=== PATIENT | female | born 1975 | race Caucasian/White ===

== ENCOUNTER 2016-10-31 15:16 | Emergency (ER) | payer OTHER ==
[~2016-10-31] VITALS: Wt 65.0 kg
[2016-10-31] MEDS ORDERED: SOD CHLORIDE 0.9% 1,000 ML IV STA (15:45)
[2016-10-31] MEDS ORDERED: morphine 2 MG INJ IV STA (15:45)
--- NOTE | 2016-10-31 17:08 | PDOCDIS ---
Discharge Instructions DIAGNOSIS Discharge Diagnosis UTI with possible pyelonephritis. CONDITION Patient Condition: Stable HOME CARE INSTRUCTIONS: Diet Instructions: Regular OTHER ORDERS: Other Orders: 1. Complete the course of antibiotics. 2. Take a regular diet. Adequately hydrate yourself. 3. Follow-up with your director of primary in 1 week. 4. Please go to the nearest ER if you continue to have significant flank and abdominal pain, continuous fevers, persistent nausea and vomiting, or any other unusual signs/symptoms. KY LAZARO NP Oct 31, 2016 17:08
[2016-10-31] MEDS ORDERED: SULF1TAB31 PO (17:09)
--- NOTE | 2016-10-31 17:14 | HP ---
Date/Time of Note Date/Time of Note DATE: 10/31/16 TIME: 17:09 Assessment/Plan VTE Prophylaxis VTE Prophylaxis Intervention: ambulation Assessment/Plan Chief Complaint/Hosp Course 1. Uncomplicated urinary tract infection with possible left-sided pyelonephritis. The patient will be continued on oral antibiotics. However, the patient's oral antibiotics will be switched to Bactrim DS. 2. Leukocytosis. Most probably secondary to #1. Plan. The patient will be discharged home today on oral antibiotics. For unclear reasons, the patient was started on oral Keflex by her poultry hatchery man as outpatient. This will be discontinued and the patient will be discharged home on oral Bactrim for 7 days. Case discussed with Dr. Nance. Problems: HPI/ROS Admit Date/Time Admit Date/Time Hx of Present Illness Reason for admission: Transferred from [facility] for further management of urinary tract infection. This is a 41-year-old female who denies any significant past medical history who started having dysuria with fevers starting on 10/29/2016. Patient went to see her primary care physician and she was started on oral Keflex and oral fluconazole. The patient started taking this medicine only from 10/30/2016. The patient did not feel well. The patient was also having fevers and chills. She also had dysuria. The patient had urinary frequency too. Therefore, she went to the closest emergency room. In the emergency room at [facility], the patient was noticed to have leukocytosis. The patient also had febrile episodes. The patient had no lactic acidosis. The patient's vital signs except the temperature remained stable. The patient was treated with a single dose of IV Zosyn along with IV fluids. Patient was transferred to [facility] for further management because of insurance reasons. In the emergency room at [facility] the patient remained afebrile. Patient's vital signs were stable. The patient was given 1 L of IV sodium chloride. ROS Constitutional: chills, nausea Eyes: no complaints ENT: no complaints Respiratory: no complaints Cardiovascular: no complaints Gastrointestinal: nausea, pain Genitourinary: dysuria, flank pain Musculoskeletal: no complaints Skin: no complaints Neurologic: no complaints Endocrine: no complaints Lymphatic: no complaints Psychological: no complaints Immunologic: no complaints PMH/Family/Social Past Medical History Medical History: no pertinent history Past Surgical History Past Surgical Hx: appendectomy Social History Lives with family. Alcohol Use: occasionally Smoking Status: Never smoker Drug Use: none Exam/Review of Systems Vital Signs Vitals Vital Signs Date Time Temp Pulse Resp B/P Pulse Ox O2 Delivery O2 Flow Rate FiO2 10/31/16 15:35 98.0 80 20 104/60 98 Exam Exam General: Adequately build 41 year-old male lying in bed in no apparent distress. HEENT: Normocephalic, atraumatic. Eyes: Anicteric sclerae, conjunctivae clear. ENT: Nasal septum midline, oral mucosa moist. Neck supple, no JVD noticed. Respiratory: Bilaterally clear breath sounds. No use of accessory muscles of respiration. No adventitious breath sounds. Cardiovascular: S1, S2 heard. No murmurs or gallops. Abdomen: Soft, nontender, and nondistended. Bowel sounds positive in all 4 quadrants. Genitourinary: Left CVA tenderness. Extremities: No cyanosis, no clubbing, no edema. Peripheral pulses palpable. Neurologic: Cranial nerves II through XII grossly intact. The patient is awake, alert, and oriented. Skin: Normal skin turgor. No skin rashes. KY LAZARO NP Oct 31, 2016 17:14
--- NOTE | 2016-10-31 17:16 | ERA ---
ER Documentation Chief Complaint Date/Time DATE: 10/31/16 TIME: 17:14 Chief Complaint FLANK PAIN SENT FROM [place] FOR ADMISSION, ALREADY GIVEN ABX HPI 41-year-old woman holding in the emergency department pending transport upstairs after being admitted for pyelonephritis. She was admitted from [facility]. While there she was treated with IV antibiotics and IV fluids as well as Toradol for pain. Patient's initial symptoms were left-sided flank pain. ROS All systems reviewed and are negative except as per history of present illness. Medications Home Meds Active Scripts Sulfamethoxazole/Trimethoprim* (Bactrim Ds* Tablet) 1 Each Tablet, 1 TAB PO BID , #14 TAB Prov:KY LAZARO FACULTY HEAD 10/31/16 Allergies Allergies: Coded Allergies: No Known Drug Allergy (Verified Allergy, Unknown, 10/31/16) PMhx/Soc None History of Surgery: Yes (Appendectomy) Anesthesia Reaction: No Hx Neurological Disorder: No Hx Respiratory Disorders: No Hx Cardiac Disorders: No Hx Psychiatric Problems: No Hx Miscellaneous Medical Probl: Yes () Hx Alcohol Use: No Hx Substance Use: No Hx Tobacco Use: No Smoking Status: Never smoker FmHx Family History: No diabetes Physical Exam Vitals Vital Signs Date Time Temp Pulse Resp B/P Pulse Ox O2 Delivery O2 Flow Rate FiO2 10/31/16 15:35 98.0 80 20 104/60 98 Physical Exam Const: [] Head: Atraumatic Eyes: Normal Conjunctiva ENT: Normal External Ears, Nose and Mouth. Neck: Full range of motion..~ No meningismus. Resp: Clear to auscultation bilaterally Cardio: Regular rate and rhythm, no murmurs Abd: Soft, non tender, non distended. Normal bowel sounds Skin: No petechiae or rashes Back: No midline or flank tenderness Ext: No cyanosis, or edema Neur: Awake and alert Psych: Normal Mood and Affect Results 24 hrs Current Medications Medications (Trade) Dose Ordered Sig/Mary Kay Route PRN Reason Start Time Stop Time Status Last Admin Dose Admin Sodium Chloride (NS) 1,000 ml @ 1,000 mls/hr Q1H STAT IV 10/31/16 15:45 10/31/16 16:44 DC 10/31/16 16:02 Morphine Sulfate (morphine) 2 mg ONCE STAT IV 10/31/16 15:45 10/31/16 15:52 DC Procedures/MDM I reviewed her recent medical records from [facility], she did receive IV antibiotics there. I ordered morphine 4 mg IV, Zofran 4 mg IV for pain control and 1 L normal saline intravenously. Patient is already admitted to [facility], holding in the ED. Further management, disposition planning, analgesics and antibiotics deferred to admitting team. Departure Diagnosis: Primary Impression: Pyelonephritis Condition: Good Patient Instructions: Pyelonephritis, Female (Adult) FRANCES GRAHAM MD Oct 31, 2016 17:16
--- NOTE | 2016-10-31 17:24 | DS ---
Date/Time of Note Date/Time of Note DATE: 10/31/16 TIME: 17:20 Discharge Summary Admission/Discharge Info Admit Date/Time Discharge Date/Time Discharge Diagnosis UTI with possible pyelonephritis. Patient Condition: Stable Hx of Present Illness Reason for admission: Transferred from [facility] for further management of urinary tract infection. This is a 41-year-old female who denies any significant past medical history who started having dysuria with fevers starting on 10/29/2016. Patient went to see her primary care physician and she was started on oral Keflex and oral fluconazole. The patient started taking this medicine only from 10/30/2016. The patient did not feel well. The patient was also having fevers and chills. She also had dysuria. The patient had urinary frequency too. Therefore, she went to the closest emergency room. In the emergency room at [facility], the patient was noticed to have leukocytosis. The patient also had febrile episodes. The patient had no lactic acidosis. The patient's vital signs except the temperature remained stable. The patient was treated with a single dose of IV Zosyn along with IV fluids. Patient was transferred to [facility] for further management because of insurance reasons. In the emergency room at [facility] the patient remained afebrile [the patient was holding in the emergency room because of lack of MedSurg beds in the hospital]. Patient's vital signs were stable. The patient was given 1 L of IV sodium chloride. Hospital Course The patient was being held in the ER because of lack of MedSurg beds in the hospital. Patient was given a single liter of IV normal saline bolus. The patient's vital signs remained stable. The patient was afebrile. The patient had an uncomplicated urinary tract infection. The patient has no comorbidities including any diabetes, chronic kidney disease, or any other medical problems. She did not have any vomiting or evidence of dehydration. She was able to tolerate oral intake. She is a healthy individual who can benefit from appropriate oral antibiotic therapy with adequate hydration and supportive care as outpatient. Hence it was felt like the patient did not need inpatient hospitalization. The patient will be discharged home today on oral antibiotics. For unclear reasons, the patient was started on oral Keflex by her general claims agent. This will be discontinued and the patient will be discharged home on oral Bactrim for 7 days. Case discussed with Dr. Nance. Home Meds Active Scripts Sulfamethoxazole/Trimethoprim* (Bactrim Ds* Tablet) 1 Each Tablet, 1 TAB PO BID , #14 TAB Prov:KY LAZARO NP 10/31/16 Follow-up Plan Follow-up with your primary care physician in 1 week. Primary Care Provider [facility] Time spent on discharge: < 30 minutes KY LAZARO NP Oct 31, 2016 17:24 KY LAZARO NP Oct 31, 2016 17:24
== END 2016-10-31 16:58 | disposition home or self-care (01) ==
LOC: E/R 15:16
DX: N12 Tubulo-interstitial nephritis, not specified as acute or chronic (principal)
CPT/HCPCS: 96374; J7030; Z7502

== ENCOUNTER 2017-10-13 20:07 | Inpatient (IN) | END 2017-10-16 14:45 | disposition home or self-care (01) | DRG 872 ==

== ENCOUNTER 2017-11-27 18:44 | Inpatient (IN) | END 2017-11-29 19:45 | disposition home or self-care (01) | DRG 392 ==

== ENCOUNTER 2018-07-14 09:19 | Day surgery (SDC) | payer OTHER ==
[~2018-07-14] VITALS: Ht 165.1 cm; Wt 84.1 kg
[~2018-07-14 09:19] MED LIST: ACET325T40 PO; DOCU-216 PO; FER325 PO
[2018-07-14 09:57] VITALS: Ht 165.1 cm; Wt 84.1 kg
[2018-07-14] MEDS ORDERED: NO MEDS (10:02)
[2018-07-14 10:15] VITALS: BP 118/72; PULSE 69; RESP 13
--- NOTE | 2018-07-14 10:22 | PREAC ---
Date/Time of Note Date/Time of Note DATE: 07/14/18 TIME: 10:14 Anesthesia Eval and Record Evaluation Time Pre-Procedure Interview DATE: 07/14/18 TIME: 10:14 Age 42 Sex female NPO: 8 hrs Preoperative diagnosis Abdominal Pain, Rectal Bleeding Planned procedure EGD, Colonoscopy Past Medical History Past Medical History: None Surgery & Anesthesia Issues No known issue Meds Anticoagulation: No Beta Sampson within 24 hr: No Reason Beta Sampson not given: Pt. not on B-Sampson Reported Medications [No Meds] No Conflict Check 07/14/18 Discontinued Scripts Acetaminophen (MAPAP) 325 Mg Tablet, 650 MG PO Q6H PRN for PAIN LEVEL 1-3 OR FEVER for 1 Day, TAB Prov:FRANCISCA ROQUE MD 11/29/17 Docusate Sodium (Dok) 100 Mg Capsule, 100 MG PO DAILY, #30 CAP Prov:FERNANDEZ,SHEA V. HUMAN RESOURCES BENEFITS COORDINATOR 10/16/17 Ferrous Sulfate* (Ferrous Sulfate*) 325 Mg Tabec, 325 MG PO BID, #60 TAB Prov:FERNANDEZADELAA V. HUMAN RESOURCES BENEFITS COORDINATOR 10/16/17 Meds reviewed: Yes Allergies Coded Allergies: No Known Drug Allergy (Verified Allergy, Unknown, 10/31/16) Allergies Reviewed: Yes Labs/Studies Labs Reviewed: Reviewed by anesthesiologist test: Negative Studies: ECG (n/a), CXR (n/a) Pre-procedure Exam Airway: Adequate mouth opening, Adequate thyromental dist Mallampati: Mallampati II Teeth: Normal Lung: Normal Heart: Normal ASA Physical Status ASA physical status: 2 Emergency: None Planned Anesthetic General/MAC: MAC Planned Pain Management Parenteral pain med Pre-operative Attestations Prior to commencing anesthesia and surgery, the patient was re-evaluated, there was verification of: *The patient's identity *The results of appropriate recent lab work and preoperative vital signs *The above evaluation not changing prior to induction *Anesthetic plan, risk benefits, alternative and complications discussed with patient/family; questions answered; patient/family understands, accepts and wishes to proceed. JAYDEN MOHAN MD July 14, 2018 10:22
--- NOTE | 2018-07-14 10:57 | PAC ---
Date/Time of Note Date/Time of Note DATE: 07/14/18 TIME: 10:56 Post-Anesthesia Notes Post-Anesthesia Note Last documented vital signs Vital Signs Date Temp Pulse Resp B/P (MAP) Pulse Ox O2 O2 Flow FiO2 Time Delivery Rate 07/14/18 97.5 69 13 118/72 94 Room Air 11:00 (87) Activity: WNL Respiratory function: WNL Cardiovascular function: WNL Mental status: Baseline Pain reasonably controlled: Yes Hydration appropriate: Yes Nausea/Vomiting absent: Yes JAYDEN MOHAN MD July 14, 2018 10:57
[2018-07-14] MEDS ORDERED: PROPOFOL 40 ML ONE (10:58)
[2018-07-14 11:20] VITALS: BP 96/63; PULSE 57; RESP 16
== END 2018-07-14 11:01 | disposition home or self-care (01) ==
LOC: GIL 09:19
PROVIDERS: ATTEND Internal Medicine Gastroenterology
DX: R19.4 Change in bowel habit (principal); K64.8 Other hemorrhoids; K29.30 Chronic superficial gastritis without bleeding
CPT/HCPCS: 43239; 45378; 84703; 88305; 88312; Z7610